=== PATIENT | male | born 1945 | race Caucasian/White ===

== ENCOUNTER 2017-05-17 07:24 | Day surgery (SDC) | payer MEDICARE, BC ==
[2017-05-17] MEDS ORDERED: PROPOFOL 500 MG/50 ML EMU IV ONE (07:39)
[2017-05-17 09:16] VITALS: BP 123/73; PULSE 67; RESP 20; TEMP 97.4; O2SAT 97
== END 2017-05-17 09:28 | disposition home or self-care (01) | DRG 951 ==
LOC: SURG 07:24
PROVIDERS: ATTEND Surgery
DX: Z12.11 Encounter for screening for malignant neoplasm of colon (principal); E11.9 Type 2 diabetes mellitus without complications; Z80.0 Family history of malignant neoplasm of digestive organs; Z86.010 Personal history of colon polyps; K57.30 Diverticulosis of large intestine without perforation or abscess without bleeding
CPT/HCPCS: G0105; J2704